=== PATIENT | male | born 1995 ===

== ENCOUNTER 2017-04-06 21:47 | Emergency (ER) | payer BC, MEDICAID ==
--- NOTE | 2017-04-06 21:57 | UC ---
Respiratory Complaint HPI - HPI Summary HPI Summary: The patient comes in today for: 1. Onset: Palliative/provocative: Quality: Region: Severity: Time: Associated symptoms: * - History of Current Complaint Stated Complaint: UPPER RESPIRATORY Time Seen by Provider: 04/06/17 21:47 - Allergies/Home Medications Allergies/Adverse Reactions: Allergies Allergy/AdvReac Type Severity Reaction Status Date / Time No Known Allergies Allergy Verified 04/06/17 21:56 Home Medications: Home Medications NK [No Home Medications Reported] 04/06/17 [History Confirmed 04/06/17]
[2017-04-06 22:00] VITALS: BP 125/77
--- NOTE | 2017-04-06 22:26 | UC ---
Cardiac HPI - HPI Summary HPI Summary: The patient comes in today for: 1. Chest tightness, Onset: "a few weeks ago." Palliative/provocative: Laying down makes the chest tightness better. Coughing makes the chest tightness better. Palpitations may be irregular or regular and laying down makes it more obvious. Shortness of breath: Coughing makes it better. Deep breaths makes it better. Quality: Tightness. Region: Chest Severity: 4/10 Time: Comes and goes. Associated symptoms: Fevers: None. Nausea: None Radiation: None. Previous heart disease: NOne. Previous evaluation: None. * - History of Current Complaint Chief Complaint: UCGeneralIllness Stated Complaint: UPPER RESPIRATORY Time Seen by Provider: 04/06/17 21:47 Hx Obtained From: Patient, Family/Relay Motorman - Allergy/Home Medications Allergies/Adverse Reactions: Allergies Allergy/AdvReac Type Severity Reaction Status Date / Time No Known Allergies Allergy Verified 04/06/17 21:56 Home Medications: Home Medications NK [No Home Medications Reported] 04/06/17 [History Confirmed 04/06/17] PMH/Surg Hx/FS Hx/Imm Hx Previously Healthy: Yes Endocrine History Of: Denies: Diabetes, Thyroid Disease, Hyperthyroidism, Hypothyroidism, Dyslipidemia Cardiovascular History Of: Denies: Cardiac Disorders, Hypertension, Pacemaker/ICD, Myocardial Infarction , Congestive Heart Failure, Atrial Fibrillation, Deep Vein Thrombosis, Bleeding Disorders Respiratory History Of: Reports: Asthma - He will take albuterol twice a day. Denies: COPD, Bronchitis, Pneumonia, Pulmonary Embolism GI/ History Of: Denies: Gastroesophageal Reflux, Ulcer, Gastrointestinal Bleed, Gall Bladder Disease, Kidney Stones, Diverticulitis, Renal Disease, Urosepsis Neurological History Of: Denies: TIA, CVA, Dementia, Seizures, Migraine Psychological History Of: Denies: Anxiety, Depression, Bipolar Disorder, Schizophrenia, Post Traumatic Stress Disorder Cancer History Of: Denies: Lung Cancer, Colorectal Cancer, Breast Cancer, Prostate Cancer, Cervical Cancer Other History Of: Negative For: HIV, Hepatitis B, Hepatitis C, Anticoagulant Therapy - Surgical History Surgical History: Yes Surgery Procedure, Year, and Place: right knee surgery - Family History Known Family History: Negative: Cardiac Disease, Hypertension - Social History Occupation: Employed Full-time Lives: With Family Alcohol Use: Weekly Substance Use Type: None Smoking Status (MU): Never Smoked Tobacco Review of Systems Constitutional: Negative Skin: Negative Eyes: Negative ENT: Negative Respiratory: Negative, Cough - Productive of yellow mucous. Cardiovascular: Palpitations, Chest Pain Gastrointestinal: Negative Genitourinary: Negative Motor: Negative All Other Systems Reviewed And Are Negative: Yes Physical Exam Triage Information Reviewed: Yes Appearance: Well-Appearing, No Pain Distress, Well-Nourished Vital Signs: Initial Vital Signs Temp 98.6 F 04/06/17 21:48 Pulse 65 04/06/17 21:48 Resp 16 04/06/17 21:48 BP 125/77 04/06/17 21:48 Pulse Ox 100 04/06/17 21:48 Vital Signs Reviewed: Yes Eyes: Positive: Conjunctiva Clear. Negative: Discharge ENT: Positive: Hearing grossly normal. Negative: Pharyngeal erythema, Nasal congestion, Nasal drainage, TM bulging, TM dull, TM red, Tonsillar swelling, Tonsillar exudate Dental: Negative: Gross Decay/Caries @, Dental Fracture @ Neck: Positive: Supple, Nontender, No Lymphadenopathy. Negative: Nuchal Rigidity Respiratory: Positive: Chest non-tender, Lungs clear, No respiratory distress, No accessory muscle use. Negative: Crackles, Wheezing Cardiovascular: Positive: RRR, No Murmur Abdomen Description: Positive: Nontender, No Organomegaly, Soft. Negative: Distended, Guarding Musculoskeletal: Positive: Strength Intact, ROM Intact, No Edema Neurological: Positive: Alert, Muscle Tone Normal Psychological: Positive: Age Appropriate Behavior, Consolable Skin: Negative: rashes, breakdown Diagnostics - Laboratory Diagnostic Studies Completed/Ordered: EKG: Rate: 64. Rhythm: sinus. Ectopy: None. ACute changes: NOne. - Assessment/Plan Course Of Treatment: The patient and his female machine leather trimmer were told that I could not say what the cause of his chest tightness was at this time. They were told that of all the things that can cause chest discomfort, some are benign and some are life-threatening. And of the life threatening causes, they may present with minimal, or atypical symptoms or be present with no symptoms at all. To determine if he has some of the more life-threatening causes, such as PE, he would need to go to the ER. He was told that his EKG did not show any obvious problems, but one can have a MS and the EKG be normal. In order to evaluation his palpitaitons, he may need further testing we don't have here such as a holter monitor and cardiac testing. I was not able to state why he was feeling short of breath either. Even though he has asthma, his lungs were clear. Overall, I suggested that he go to the ER for further evaluation. He and his female machine leather trimmer did not want to go tonight, but wanted to do this in the AM. - Clinical Impression Provider Diagnoses: Chest pain, shortness of breath, and palpitations. Discharge - Discharge Plan Condition: Stable Disposition: AGAINST MEDICAL ADVICE Additional Instructions: If you are not going to the ER tonight, please see your primary care provider as soon as you can. If you get worse, please reconsider going to the ER tonight.
== END 2017-04-06 23:05 | disposition left against medical advice (07) ==
LOC: UCCORT 21:47
DX: R07.89 Other chest pain (principal); R06.02 Shortness of breath; R00.2 Palpitations; J45.909 Unspecified asthma, uncomplicated
CPT/HCPCS: 93005; 99202; G0463